=== PATIENT | male | born 1935 | race Caucasian/White ===

== ENCOUNTER 2016-10-04 01:34 | Emergency (ER) | payer OTHER ==
[~2016-10-04] VITALS: Ht 170.2 cm; Wt 64.4 kg
[~2016-10-04 01:34] MED LIST: AMLO5TAB4 PO; FINA5TAB11 PO; LANS30CA10 PO; TAMS-11 PO; [UNRECOGNIZED DRUG - CODE] OP
[2016-10-04 01:37] VITALS: BP_SYST 145
[2016-10-04 02:29] LABS: BASOPHILS # (AUTO) 0.1 K/uL (0.0-0.2); BASOPHILS % (AUTO) 0.7 % (0.0-2.0); EOSINOPHILS # (AUTO) 0.4 K/uL (0.0-0.4); HEMOGLOBIN 14.7 g/dL (14.0-18.0); LYMPHOCYTES # (AUTO) 1.2 K/uL (1.0-5.5); LYMPHOCYTES % (AUTO) 15.9 % (20.5-51.5); MEAN CORPUSCULAR HEMOGLOBIN 30 pg (27-31); MEAN CORPUSCULAR HGB CONC 33 % (32-36); MEAN CORPUSCULAR VOLUME 92 fL (79.0-98.0); MONOCYTES # (AUTO) 0.5 K/uL (0.0-1.0); MONOCYTES % (AUTO) 6.6 % (1.7-9.3); NEUTROPHILS # (AUTO) 5.1 K/uL (1.8-7.7); NEUTROPHILS % (AUTO) 71.8 % (40.0-70.0); PLATELET COUNT (AUTO) 152 K/uL (130-430); RED CELL DISTRIBUTION WIDTH 12.6 % (9.0-15.0); WHITE BLOOD COUNT (AUTO) 7.3 K/uL (4.8-10.8)
[2016-10-04 02:39] LABS: BILIRUBIN,URINE NEGATIVE (NEGATIVE); BLOOD, URINE NEGATIVE (NEGATIVE); CLARITY/URINE CLEAR (CLEAR); COLOR,URINE YELLOW (YELLOW); GLUCOSE,URINE NEGATIVE (NEGATIVE); KETONES,URINE NEGATIVE (NEGATIVE); LEUKOCYTE ESTERASE ,URINE NEGATIVE (NEGATIVE); NITRITE, URINE NEGATIVE (NEGATIVE); PROTEIN URINE NEGATIVE (NEGATIVE); UROBILINOGEN,URINE 0.2 (0.2-1.0)
[2016-10-04 02:39] LABS: ANION GAP 4 (5-15); CALCIUM 8.5 mg/dL (8.4-11.0); CHLORIDE 106 mmol/L (98-107); CREATININE 0.91 mg/dL (0.55-1.30); GLUCOSE 143 mg/dL (70-99); POTASSIUM 3.7 mmol/L (3.5-5.1); SODIUM SERUM 140 mmol/L (136-145); UREA NITROGEN, BLOOD 22 mg/dL (8-21)
[2016-10-04 02:44] LABS: ALANINE AMINOTRANSFERASE 19 U/L (12-78); ALBUMIN 3.7 g/dL (3.4-4.8); ASPARTATE AMINOTRANSFERASE 18 U/L (10-37); TOTAL BILIRUBIN 0.5 mg/dL (0.0-1.0); TOTAL PROTEIN, SERUM 6.6 g/dL (6.4-8.3)
[2016-10-04] MEDS ORDERED: ASPI-1063 PO (02:50)
[2016-10-04] MEDS ORDERED: CHOL500037 PO (02:50)
[2016-10-04] MEDS ORDERED: CYAN50008 PO (02:50)
[2016-10-04] MEDS ORDERED: PRAV20TA PO (02:50)
[2016-10-04 03:24] VITALS: BP_SYST 134
== END 2016-10-04 03:24 | disposition home or self-care (01) ==
LOC: SED 01:34
DX: R42 Dizziness and giddiness (principal); R53.1 Weakness; K21.9 Gastro-esophageal reflux disease without esophagitis; I10 Essential (primary) hypertension; Z88.2 Allergy status to sulfonamides; Z88.8 Allergy status to other drugs, medicaments and biological substances
CPT/HCPCS: 36415; 80053; 81003; 85025; 99284

== ENCOUNTER 2017-04-04 15:18 | Emergency (ER) | payer OTHER ==
[~2017-04-04] VITALS: Ht 170.2 cm; Wt 65.8 kg
[~2017-04-04 15:18] MED LIST changes: +ASPI-1063 PO; +CHOL500037 PO; +CYAN50008 PO; -LANS30CA10 PO; +PRAV20TA PO; -[UNRECOGNIZED DRUG - CODE] OP
[2017-04-04 15:30] VITALS: BP_SYST 157
== END 2017-04-04 16:15 | disposition left against medical advice (07) ==
LOC: SED 15:18
DX: S09.90XA Unspecified injury of head, initial encounter (principal); Z53.21 Procedure and treatment not carried out due to patient leaving prior to being seen by health care provider; X58.XXXA Exposure to other specified factors, initial encounter; Y93.89 Activity, other specified; Y92.89 Other specified places as the place of occurrence of the external cause; Y99.8 Other external cause status

== ENCOUNTER 2017-04-05 02:49 | Emergency (ER) | payer OTHER ==
[~2017-04-05] VITALS: Ht 170.2 cm; Wt 65.8 kg
[2017-04-05 02:58] VITALS: BP_SYST 142
[2017-04-05] MEDS ORDERED: IBUPROFEN 800 MG TABLET PO ONE (04:30)
[2017-04-05 04:45] VITALS: BP_SYST 138
== END 2017-04-05 04:45 | disposition home or self-care (01) ==
LOC: SED 02:49
DX: S00.03XA Contusion of scalp, initial encounter (principal); K21.9 Gastro-esophageal reflux disease without esophagitis; I10 Essential (primary) hypertension; N40.0 Benign prostatic hyperplasia without lower urinary tract symptoms; Z88.2 Allergy status to sulfonamides; Z88.8 Allergy status to other drugs, medicaments and biological substances; W22.8XXA Striking against or struck by other objects, initial encounter; Y93.89 Activity, other specified; Y92.89 Other specified places as the place of occurrence of the external cause; Y99.8 Other external cause status
CPT/HCPCS: 70450-TC; 99284

== ENCOUNTER 2017-11-07 09:59 | Emergency (ER) | payer OTHER ==
[~2017-11-07] VITALS: Ht 170.2 cm; Wt 68.0 kg
[~2017-11-07 09:59] MED LIST changes: -ASPI-1063 PO; +ASPI-1154 PO
[2017-11-07 10:05] VITALS: BP_SYST 149
--- NOTE | 2017-11-07 10:11 | NUR ---
Pt to bed 7
--- NOTE | 2017-11-07 10:15 | NUR ---
Pt provided with ice pack for pain relief.
--- NOTE | 2017-11-07 10:20 | NUR ---
Pt presents to ER c/o low back pain 01/09 since this morning. Pt reports he bent over to tie shoes when pain began, denies trauma. Pt reports hx of back pain and states episodes like this occur every 5-6 months and last approx 1 week. Pt denies any urinary symptoms, denies chest pain or sob, denies nausea or vomiting. Pt in no acute distress, speaking full sentences, AOX4, ambulatory but slowly. Pt drove self to hospital.
--- NOTE | 2017-11-07 10:22 | NUR ---
ER at bedside examining patient.
[2017-11-07] MEDS ORDERED: KETOROLAC TROMETHAMINE 30 MG VIAL IM ONE (10:30)
--- NOTE | 2017-11-07 10:38 | NUR ---
Pt medicated as ordered by Dr. Youngblood. Pt tolerated well; will continue to monitor.
[2017-11-07 10:50] VITALS: BP_SYST 149
--- NOTE | 2017-11-07 10:50 | NUR ---
Patient given written and verbal discharge instructions and verbalizes understanding. ER MD discussed with patient the results and treatment provided. Patient in stable condition. ID arm band removed. Rx of Fleming given. Patient educated on pain management and to follow up with PMD. Pain Scale 0/10. Opportunity for questions provided and answered. Medication side effect fact sheet provided.
== END 2017-11-07 10:50 | disposition home or self-care (01) ==
LOC: SED 09:59
DX: M54.5 Low back pain (principal); K21.9 Gastro-esophageal reflux disease without esophagitis; E78.00 Pure hypercholesterolemia, unspecified; I10 Essential (primary) hypertension; N40.0 Benign prostatic hyperplasia without lower urinary tract symptoms; Z90.89 Acquired absence of other organs; Z88.2 Allergy status to sulfonamides; Z88.8 Allergy status to other drugs, medicaments and biological substances; Z79.899 Other long term (current) drug therapy
CPT/HCPCS: 96372; 99283; J1885

== ENCOUNTER 2019-05-09 13:30 | Emergency (ER) | payer OTHER ==
[~2019-05-09] VITALS: Ht 170.2 cm; Wt 63.5 kg
[2019-05-09 13:30] VITALS: BP_SYST 138
[~2019-05-09 13:30] MED LIST changes: -ASPI-1154 PO; +ASPI-1457 PO
--- NOTE | 2019-05-09 13:30 | NUR ---
Patient triaged and placed in waiting room. VSS and patient appears in no acute distress at this time. Accompanied by SELF, awaiting available bed, and MD notified of need for MSE.
--- NOTE | 2019-05-09 14:14 | NUR ---
PT STATES HE DID NOT WANT TO WAIT, PT LEFT WITHOUT BEING SEEN BY MD.
== END 2019-05-09 14:14 | disposition left against medical advice (07) ==
LOC: SED 13:30
DX: M54.5 Low back pain (principal); Z53.21 Procedure and treatment not carried out due to patient leaving prior to being seen by health care provider

== ENCOUNTER 2019-12-02 02:11 | Emergency (ER) | payer OTHER ==
[~2019-12-02] VITALS: Ht 170.2 cm; Wt 62.6 kg
[2019-12-02 02:15] VITALS: BP_SYST 141
[2019-12-02 03:29] VITALS: BP_SYST 136
== END 2019-12-02 03:29 | disposition home or self-care (01) ==
LOC: SED 02:11
DX: S09.90XA Unspecified injury of head, initial encounter (principal); K21.9 Gastro-esophageal reflux disease without esophagitis; I10 Essential (primary) hypertension; E78.00 Pure hypercholesterolemia, unspecified; N40.0 Benign prostatic hyperplasia without lower urinary tract symptoms; Z79.899 Other long term (current) drug therapy; Z79.82 Long term (current) use of aspirin; Z88.2 Allergy status to sulfonamides; Z88.6 Allergy status to analgesic agent; W22.8XXA Striking against or struck by other objects, initial encounter; Y93.89 Activity, other specified; Y92.89 Other specified places as the place of occurrence of the external cause; Y99.8 Other external cause status
CPT/HCPCS: 70450-TC; 99284

== ENCOUNTER 2020-04-28 20:11 | Emergency (ER) | payer OTHER ==
[~2020-04-28] VITALS: Ht 170.2 cm; Wt 61.2 kg
[2020-04-28 20:20] VITALS: BP_SYST 172
[2020-04-28] MEDS ORDERED: HYDROcodone/ACETAMIN 5-325 MG TAB (NORCO/ VICODIN) PO ONE (20:45)
[2020-04-28 21:49] VITALS: BP_SYST 158
== END 2020-04-28 21:49 | disposition home or self-care (01) ==
LOC: SED 20:11
DX: S09.90XA Unspecified injury of head, initial encounter (principal); I10 Essential (primary) hypertension; K21.9 Gastro-esophageal reflux disease without esophagitis; N40.0 Benign prostatic hyperplasia without lower urinary tract symptoms; E78.00 Pure hypercholesterolemia, unspecified; Z79.899 Other long term (current) drug therapy; Z79.82 Long term (current) use of aspirin; Z88.2 Allergy status to sulfonamides; Z88.8 Allergy status to other drugs, medicaments and biological substances; W22.8XXA Striking against or struck by other objects, initial encounter; Y93.89 Activity, other specified; Y92.89 Other specified places as the place of occurrence of the external cause; Y99.8 Other external cause status
CPT/HCPCS: 70450-TC; 76376; 99284

== ENCOUNTER 2020-05-11 16:19 | Emergency (ER) | payer OTHER, SELFPAY ==
[~2020-05-11] VITALS: Ht 170.2 cm; Wt 61.7 kg
[2020-05-11 16:24] VITALS: BP_SYST 153
[2020-05-11 16:54] LABS: BASOPHILS % (AUTO) 0.5 % (0.0-2.0); EOSINOPHILS # (AUTO) 0.2 K/uL (0.0-0.4); EOSINOPHILS % (AUTO) 3.1 % (0.0-4.0); HEMATOCRIT 43.2 % (36-54); HEMOGLOBIN 14.4 g/dL (14.0-18.0); LYMPHOCYTES # (AUTO) 1.1 K/uL (1.0-5.5); LYMPHOCYTES % (AUTO) 14.4 % (20.5-51.5); MEAN CORPUSCULAR HEMOGLOBIN 31 pg (27-31); MEAN CORPUSCULAR HGB CONC 33 % (32-36); MEAN CORPUSCULAR VOLUME 94 fL (79.0-98.0); MONOCYTES # (AUTO) 0.6 K/uL (0.0-1.0); MONOCYTES % (AUTO) 8.3 % (1.7-9.3); NEUTROPHILS # (AUTO) 5.6 K/uL (1.8-7.7); NEUTROPHILS % (AUTO) 73.7 % (40.0-70.0); PLATELET COUNT (AUTO) 163 K/uL (130-430); RED CELL DISTRIBUTION WIDTH 12.8 % (9.0-15.0); WHITE BLOOD COUNT (AUTO) 7.6 K/uL (4.8-10.8)
[2020-05-11 17:10] LABS: ANION GAP 5 (5-15); CHLORIDE 104 mmol/L (98-107); CREATININE 0.93 mg/dL (0.55-1.30); GLUCOSE 164 mg/dL (70-99); SODIUM SERUM 141 mmol/L (136-145); UREA NITROGEN, BLOOD 21 mg/dL (8-21)
[2020-05-11 17:16] LABS: ALANINE AMINOTRANSFERASE 20 U/L (12-78); ASPARTATE AMINOTRANSFERASE 19 U/L (10-37); TOTAL BILIRUBIN 0.4 mg/dL (0.0-1.0)
[2020-05-11] MEDS ORDERED: OMEP1CAP25 PO (18:45)
[2020-05-11] MEDS ORDERED: ASPIRIN 81 MG TABLET(ECOTRIN) PO ONE (20:45)
[2020-05-11] MEDS ORDERED: ASPIRIN 81 MG TAB.CHEW ONE (20:48)
[2020-05-12 00:56] VITALS: BP_SYST 137
== END 2020-05-12 00:54 | disposition short-term general hospital (02) ==
LOC: SED 16:19
DX: R07.89 Other chest pain (principal); R77.8 Other specified abnormalities of plasma proteins; I10 Essential (primary) hypertension; K21.9 Gastro-esophageal reflux disease without esophagitis; N40.0 Benign prostatic hyperplasia without lower urinary tract symptoms; E78.00 Pure hypercholesterolemia, unspecified; Z79.899 Other long term (current) drug therapy; Z79.82 Long term (current) use of aspirin; Z88.2 Allergy status to sulfonamides; Z88.8 Allergy status to other drugs, medicaments and biological substances; Z20.822 Contact with and (suspected) exposure to COVID-19
CPT/HCPCS: 36415; 71045; 80053; 82550; 83880; 84484; 85025; 87426; 93005; 99285; C9803; U0003

== ENCOUNTER 2020-07-30 09:50 | Emergency (ER) | payer OTHER, SELFPAY ==
[~2020-07-30] VITALS: Ht 170.2 cm; Wt 61.2 kg
[~2020-07-30 09:50] MED LIST changes: +OMEP1CAP25 PO
[2020-07-30 10:06] VITALS: BP_SYST 151
--- NOTE | 2020-07-30 10:13 | NUR ---
Patient to ER bed 6 to gown for evaluation. Side rails up. Report given to CLEMENTINA HAIDER.
--- NOTE | 2020-07-30 10:18 | NUR ---
RAD TO ASSUME CARE, RECEIVED AND IN ROOM 6. ABRASIONS TO FACE, BLEEDING CONTROLLED. PAIN RT WRIST, C/O MECHANICAL FALL. DENIES HITTING HEAD ON GROUND.
--- NOTE | 2020-07-30 10:25 | NUR ---
DR CHICAS IN TO ASSESS
--- NOTE | 2020-07-30 10:33 | NUR ---
X-RAYS IN PROGRESS, TOLERATING WELL
--- NOTE | 2020-07-30 10:49 | NUR ---
WOUND CARE, CLEAN AND DRY. NO DISTRESS, PT CALM, ALERT, COMMUNICATES CLEARLY IN FULL COMPLETE SENTNECES. NO
[2020-07-30] MEDS ORDERED: BACITRACIN 1 GM OINT TP ONE (10:57)
--- NOTE | 2020-07-30 11:15 | NUR ---
UP WALKING STEADY, NO DISTRESS, RESP UNLABORED, SKIN WARM AND DRY
[2020-07-30 11:19] VITALS: BP_SYST 141
--- NOTE | 2020-07-30 11:19 | NUR ---
Patient given written and verbal discharge instructions and verbalizes understanding. ER MD discussed with patient the results and treatment provided. Patient in stable condition. ID arm band removed. Patient educated on pain management and to follow up with PMD. Pain Scale 1/10 Opportunity for questions provided and answered.
== END 2020-07-30 11:19 | disposition home or self-care (01) ==
LOC: SED 09:50
DX: S63.592A Other specified sprain of left wrist, initial encounter (principal); I10 Essential (primary) hypertension; K21.9 Gastro-esophageal reflux disease without esophagitis; E78.00 Pure hypercholesterolemia, unspecified; N40.0 Benign prostatic hyperplasia without lower urinary tract symptoms; Z79.899 Other long term (current) drug therapy; Z88.2 Allergy status to sulfonamides; Z88.6 Allergy status to analgesic agent; W18.39XA Other fall on same level, initial encounter; Y93.89 Activity, other specified; Y92.89 Other specified places as the place of occurrence of the external cause; Y99.8 Other external cause status
CPT/HCPCS: 99283

== ENCOUNTER 2023-06-15 09:17 | Emergency (ER) | payer OTHER ==
[~2023-06-15] VITALS: Ht 170.2 cm; Wt 79.8 kg
[2023-06-15 09:17] VITALS: BP_SYST 144; PULSE 72; RESP 18; TEMP 98; O2SAT 98
[~2023-06-15 09:17] MED LIST changes: -CYAN50008 PO; +CYAN50009 PO
[2023-06-15 09:32] LABS: BASOPHILS % (AUTO) 0.3 % (0.0-2.0); EOSINOPHILS # (AUTO) 0.1 K/uL (0.0-0.4); EOSINOPHILS % (AUTO) 0.6 % (0.0-4.0); HEMOGLOBIN 13.8 g/dL (14.0-18.0); LYMPHOCYTES # (AUTO) 0.7 K/uL (1.0-5.5); LYMPHOCYTES % (AUTO) 7.7 % (20.5-51.5); MEAN CORPUSCULAR HEMOGLOBIN 31 pg (27-31); MEAN CORPUSCULAR HGB CONC 34 % (32-36); MEAN CORPUSCULAR VOLUME 91 fL (79.0-98.0); MONOCYTES # (AUTO) 0.5 K/uL (0.0-1.0); MONOCYTES % (AUTO) 5.7 % (1.7-9.3); NEUTROPHILS % (AUTO) 85.7 % (40.0-70.0); PLATELET COUNT (AUTO) 143 K/uL (130-430); RED CELL DISTRIBUTION WIDTH 13.5 % (9.0-15.0); WHITE BLOOD COUNT (AUTO) 9.3 K/uL (4.8-10.8)
[2023-06-15 09:43] LABS: ANION GAP 8 (5-15); CALCIUM 8.7 mg/dL (8.4-11.0); CARBON DIOXIDE 29 mmol/L (23-29); CHLORIDE 102 mmol/L (98-107); GLUCOSE 240 mg/dL (74-106); POTASSIUM 4.5 mmol/L (3.5-5.1); SODIUM SERUM 139 mmol/L (136-145); UREA NITROGEN, BLOOD 17 mg/dL (8-21)
[2023-06-15 09:52] LABS: LIPASE 16 U/L (16-77)
[2023-06-15 11:09] VITALS: BP_SYST 134; PULSE 60; RESP 18; TEMP 98; O2SAT 96
== END 2023-06-15 10:20 | disposition left against medical advice (07) ==
LOC: SED 09:17
DX: E11.65 Type 2 diabetes mellitus with hyperglycemia (principal); R07.89 Other chest pain; K21.9 Gastro-esophageal reflux disease without esophagitis; I10 Essential (primary) hypertension; I25.2 Old myocardial infarction; Z88.2 Allergy status to sulfonamides; Z88.8 Allergy status to other drugs, medicaments and biological substances
CPT/HCPCS: 36415; 71045; 80048; 83690; 83880; 84484; 85025; 93005; 99285